=== PATIENT | male | born 1990 | race Caucasian/White ===

== ENCOUNTER 2016-11-30 11:16 | Emergency (ER) | payer OTHER ==
[~2016-11-30] VITALS: Ht 180.3 cm; Wt 83.9 kg
[2016-11-30 11:25] VITALS: BP 127/58; PULSE 54; RESP 16; TEMP 99; O2SAT 99
--- NOTE | 2016-11-30 11:47 | PD ---
HPI Chief Complaint: Complaint Time Seen by Provider: 11:32 Travel History International Travel<30 days: No Contact w/Intl Traveler<30days: No Traveled to known affect area: No History of Present Illness HPI 26-year-old male presents to the emergency department for evaluation of right testicular pain that started on Monday night while at work. He states that he does a lot of heavy lifting, but cannot determine what started the pain. Patient states has been intermittent since Monday night. No radiation of the pain, but he does report mild groin pain as well. He states that certain things will make the pain worse, but does not know what these things are. He denies any new sexual partners, no unprotected sex. He reports being with the same sexual partner for the past 3 years. He denies any penile discharge. He denies any fevers or chills. No chest pain or shortness of breath. Patient denies any nausea, vomiting, diarrhea. He denies having this pain before in the past. He cannot specify any alleviating factors. He states pain is mild at this time. He denies any urinary symptoms. No signs or symptoms of hernia. [facility] Past Medical History Medical History: Denies Significant Hx Past Surgical History Surgical History: No Previous Surgery Social History Alcohol Use: No Tobacco Use: No Substance Use: No Allergies-Medications (Allergen,Severity, Reaction): Coded Allergies: No Known Allergies (Unverified , 11/30/16) Reported Meds & Prescriptions Reported Meds & Active Scripts Active No Active Prescriptions or Reported Medications Review of Systems Except as stated in HPI: all other systems reviewed are Neg Physical Exam Narrative GENERAL: Well-nourished, well-developed male patient, ambulatory. Afebrile. SKIN: Focused skin assessment warm/dry. HEAD: Normocephalic. Atraumatic. EYES: No scleral icterus. No injection or drainage. NECK: Supple, trachea midline. No JVD or lymphadenopathy. CARDIOVASCULAR: Regular rate and rhythm without murmurs, gallops, or rubs. RESPIRATORY: Breath sounds equal bilaterally. No accessory muscle use. Lungs sounds are clear to auscultation. GASTROINTESTINAL: Abdomen soft, non-tender, nondistended. MUSCULOSKELETAL: No cyanosis, or edema. BACK: Nontender without obvious deformity. No CVA tenderness. GENITOURINARY: Circumcised. Testes descended bilaterally without evidence of rotation. No lesions or erythema. No urethral discharge. This exam was done with RN at bedside. Data Data Last Documented VS Vital Signs Date Time Temp Pulse Resp B/P (MAP) Pulse Ox O2 Delivery O2 Flow Rate FiO2 11/30/16 11:25 99.0 54 16 127/58 (81) 99 Orders Orders Urinalysis - C+S If Indicated (11/30/16 11:42) Gc And Chlamydia Pcr (11/30/16 11:42) Us Testicles W Doppler (11/30/16 11:42) Labs Laboratory Tests Test 11/30/16 12:15 Urine Collection Type CLEAN CATCH Urine Color YELLOW Urine Turbidity CLEAR Urine pH 5.5 Urine Specific [place] 1.029 Urine Protein NEG mg/dL Urine Glucose (UA) NEG mg/dL Urine Ketones NEG mg/dL Urine Occult Blood NEG Urine Nitrite NEG Urine Bilirubin NEG Urine Leukocyte Esterase NEG Urine RBC 0-3 /hpf Urine Squamous Epithelial Cells 0-5 /hpf Microscopic Urinalysis Comment CULT NOT INDICATED Urine Collection Time 12:15 [facility] Medical Decision Making Medical Screen Exam Complete: Yes Emergency Medical Condition: Yes Medical Record Reviewed: Yes Interpretation(s) Last Impressions Scrotum Ultrasound 11/30/16 1142 Signed Impressions: Service Date/Time: Monday, November 30, 2016 12:42 - CONCLUSION: 1. Unremarkable testicular ultrasound examination with intact symmetrical blood flow. 2. Small right-sided hydrocele. 3. Bilateral varicoceles. Tahir Jimenez MD Differential Diagnosis Epididymitis versus hernia versus muscle strain versus testicular torsion versus UTI versus urethritis Narrative Course 26-year-old male presents to the emergency department for evaluation of intermittent testicular pain, slight groin pain since Monday Night. He does appear well on exam. Ultrasound of testicles, UA, Chlamydia/gonorrhea are ordered and pending. US shows unremarkable testicular ultrasound examination with intact symmetrical blood flow; small right-sided hydrocele; bilateral varicoceles. UA is negative. Chlamydia/gonorrhea are pending. Patient reports one sexual partner in the past 3 years and has no penile discharge or evidence of STD. Patient will not be prophylactically treated. Possible muscle strain from heavy lifting at work. No evidence of hernia or emergent findings at this time. I instructed the patient to follow-up with his primary care physician. He is to return here for any acute worsening of symptoms including, but not limited to abdominal pain, vomiting, fevers, worsening symptoms. He verbalizes agreement and understanding to this. The patient was discharged in stable condition with instructions, including return instructions and follow up instructions. Diagnosis Primary Impression: Testicular pain, right Referrals: Primary Care Physician 2 days Patient Instructions: General Instructions, Testicle Pain (ED) Additional Instructions: Follow-up with your primary care physician. Return to the emergency department for any acute worsening of symptoms. Med/Other Pt SpecificInfo: No Change to Meds Scripts No Active Prescriptions or Reported Meds Disposition: 01 DISCHARGE HOME Condition: Stable Shy Lee CELESTE Nov 30, 2016 11:47
[2016-11-30 12:30] LABS: BLOOD, URINE NEG (NEG); GLUCOSE,URINE NEG (NEG); KETONE, URINE NEG (NEG); NITRITE,URINE NEG (NEG); PH, URINE 5.5 (5.0-8.5)
[2016-11-30 12:36] LABS: COMMENT (UR) CULT NOT INDICATED; CULTURE IF INDICATED CULT NOT INDICATED; METHOD OF COLLECTION CLEAN CATCH; RBC, URINE 0-3 /hpf (0-3); SQUAMOUS EPITHELIAL CELL URINE 0-5 /hpf (0-5); URINE COLOR YELLOW (YELLW/STRAW)
[2016-11-30 13:00] VITALS: BP 108/61; PULSE 82; RESP 18; O2SAT 94
--- NOTE | 2016-11-30 13:17 | RADRPT ---
EXAM DATE/TIME: 11/30/2016 12:42 [facility] COMPARISON: No previous studies available for comparison. INDICATIONS : Testicle pain. MEDICAL HISTORY : Testicle pain. SURGICAL HISTORY : None. ENCOUNTER: Initial ACUITY: 4 - 6 days PAIN SCORE: 4/10 LOCATION: Bilateral testicles. MEASUREMENTS: RIGHT TESTICLE: 3.1 x 2.8 x 2.3cm LEFT TESTICLE: 3.8 x 2.6 x 2.0cm FINDINGS: RIGHT TESTICLE: Homogeneous echotexture without intra or extratesticular mass. Blood flow is symmetric and within no rmal limits. Small hydrocele. Small varicocele. Epididymis is within normal limits. LEFT TESTICLE: Homogeneous echotexture without intra or extratesticular mass. Blood flow is symmetric and within no rmal limits. No hydrocele. Small varicocele. Epididymis is within normal limits. SCROTUM: Within normal limits. CONCLUSION: 1. Unremarkable testicular ultrasound examination with intact symmetrical blood flow. 2. Small right-sided hydrocele. 3. Bilateral varicoceles. Tahir Jimenez MD on November 30, 2016 at 13:11 Board Certified Radiologist. This report was verified electronically.
[2016-11-30 13:42] VITALS: BP 116/64
[2016-11-30 19:16] LABS: CHLAMYDIA PCR NOT DETECTED (NOT DETECT); NEISSERIA PCR NOT DETECTED (NOT DETECT)
== END 2016-11-30 13:43 | disposition home or self-care (01) ==
LOC: PHED 11:16
DX: N50.811 Right testicular pain (principal)
CPT/HCPCS: 76870; 81001; 87491; 87591; 93975; 99284